=== PATIENT | male | born 1960 | race Caucasian/White ===

== ENCOUNTER 2022-08-03 08:26 | Outpatient (CLI) | payer OTHER, SELFPAY ==
[2022-08-03 13:40] LABS: Albumin* 4.5 g/dL (3.3-5.0); Chloride* 101 mmol/L (96-114); Sodium* 138 mmol/L (135-149)
[2022-08-03 13:41] LABS: Potassium* 4.9 mmol/L (3.6-5.1)
[2022-08-03 13:43] LABS: Alanine Aminotransferase* 33 U/L (4-50); Alkaline Phosphatase* 130 U/L (40-150); Aspartate Amino Transferase* 31 U/L (12-35); Bilirubin Total* 0.4 mg/dL (0.1-1.5); Blood Urea Nitrogen* 15 mg/dL (7-30); Carbon Dioxide* 28 mmol/L (20-32); Cholesterol* 193 mg/dL (90-199); Creatinine* 0.7 mg/dL (0.5-1.5); Estimated Glomerular Filt Rate 104 ml/min; Glucose* 121 mg/dL (60-115); Total Protein* 7.1 g/dL (6.0-8.3)
[2022-08-03 13:44] LABS: Calcium* 9.8 mg/dL (8.4-10.6); HDL Cholesterol* 46 mg/dL (>=40); LDL Cholesterol Calculated 110 mg/dL (<100); Triglycerides* 184 mg/dL (40-149)
[2022-08-03 14:13] LABS: PSA Screen* 1.06 ng/mL (0.10-4.00)
[2022-08-03 14:33] LABS: Hepatitis C Virus Antibody* Negative (Negative)
== END 2022-08-03 08:27 | disposition home or self-care (01) ==
PROVIDERS: PCP Physician Assistant Medical; Visit Provider Family Medicine
DX: Z00.00 Encounter for general adult medical examination without abnormal findings (principal); E78.5 Hyperlipidemia, unspecified; N20.9 Urinary calculus, unspecified; F41.9 Anxiety disorder, unspecified; Z11.59 Encounter for screening for other viral diseases; Z12.5 Encounter for screening for malignant neoplasm of prostate
CPT/HCPCS: 80053; 80061; 84153; 86803

== ENCOUNTER 2023-08-09 08:33 | Outpatient (CLI) | payer OTHER, SELFPAY | END 2023-08-09 08:34 | disposition home or self-care (01) | PROVIDERS: PCP Family Medicine; Visit Provider Family Medicine | DX: Z00.00 Encounter for general adult medical examination without abnormal findings (principal); I10 Essential (primary) hypertension; E78.5 Hyperlipidemia, unspecified; R73.09 Other abnormal glucose; N02.9 Recurrent and persistent hematuria with unspecified morphologic changes; G45.9 Transient cerebral ischemic attack, unspecified; Z13.6 Encounter for screening for cardiovascular disorders | CPT/HCPCS: 80053; 80061; 82043; 82570; 84156 ==

== ENCOUNTER 2023-09-21 08:36 | Outpatient (CLI) | payer OTHER, SELFPAY | END 2023-09-21 08:37 | disposition home or self-care (01) | PROVIDERS: PCP Family Medicine; Visit Provider Family Medicine | DX: G45.9 Transient cerebral ischemic attack, unspecified (principal); I51.7 Cardiomegaly; I10 Essential (primary) hypertension; I16.0 Hypertensive urgency | CPT/HCPCS: 93306; 96374 ==